=== PATIENT | female | born 1945 | race Native Hawaiian/Other Pacific Islander ===

== ENCOUNTER 2016-09-11 09:49 | Outpatient (CLI) | payer OTHER ==
[~2016-09-11 09:49] MED LIST: CARV6.25 PO; HYDR10TA47 PO; METF500T PO; OMEP20CA PO; PLAVIX75 MG PO; ROSU10TA PO; SINGULAIR10 MG PO; TOVIAZ4 MG PO; WARFARIN5 MG PO
[2016-09-11 10:14] LABS: POTASSIUM 3.7 mmol/L (3.6-5.2); SODIUM 139 mmol/L (136-145)
== END 2016-09-11 19:08 | disposition home or self-care (01) ==
LOC: LABW 09:49
PROVIDERS: Internal Medicine Cardiovascular Disease
DX: I25.10 Atherosclerotic heart disease of native coronary artery without angina pectoris (principal); R06.02 Shortness of breath; I10 Essential (primary) hypertension
CPT/HCPCS: 36415; 80048; 83880

== ENCOUNTER 2018-11-07 09:27 | Outpatient (CLI) | payer OTHER | END 2018-11-07 10:10 | disposition short-term general hospital (02) | LOC: AMB 09:27 | DX: M25.562 Pain in left knee (principal) | CPT/HCPCS: A0425; A0427 ==

== ENCOUNTER 2020-05-21 13:52 | Outpatient (CLI) | payer OTHER ==
[~2020-05-21] VITALS: Ht 167.6 cm; Wt 104.3 kg
[2020-05-21 14:05] VITALS: BP 146/74; TEMP 98.1
[2020-05-21 15:21] LABS: PLATELET COUNT 157 K/uL (152-353); POTASSIUM 3.7 mmol/L (3.6-5.2)
== END 2020-05-21 17:20 | disposition home or self-care (01) ==
LOC: INF 13:52
PROVIDERS: ATTEND Family Medicine
DX: U07.1 COVID-19 (principal); Z79.899 Other long term (current) drug therapy
CPT/HCPCS: 80053; 85027; 96365; Q0239

== ENCOUNTER 2020-12-11 08:36 | Outpatient (CLI) | payer OTHER | END 2020-12-11 22:10 | disposition home or self-care (01) | LOC: RESP 08:36 | PROVIDERS: ATTEND Internal Medicine | DX: R06.81 Apnea, not elsewhere classified (principal) ==

== ENCOUNTER 2021-04-01 09:26 | Outpatient (CLI) | payer OTHER | END 2021-04-01 20:04 | disposition home or self-care (01) | LOC: US 09:26 | PROVIDERS: ATTEND Internal Medicine Cardiovascular Disease | DX: R09.89 Other specified symptoms and signs involving the circulatory and respiratory systems (principal) ==

== ENCOUNTER 2021-08-11 10:10 | Outpatient (CLI) | payer OTHER ==
[2021-08-11 10:51] LABS: POTASSIUM 3.5 mmol/L (3.6-5.2)
== END 2021-08-11 19:30 | disposition home or self-care (01) ==
LOC: LABW 10:10
PROVIDERS: ATTEND Internal Medicine Cardiovascular Disease
DX: Z79.899 Other long term (current) drug therapy (principal); R06.09 Other forms of dyspnea
CPT/HCPCS: 36415; 80048; 83880

== ENCOUNTER 2022-09-06 04:56 | Emergency (ER) | payer OTHER ==
[~2022-09-06] VITALS: Ht 165.1 cm; Wt 104.3 kg
[2022-09-06 04:56] VITALS: TEMP 98.2
[2022-09-06 05:16] LABS: PLATELET COUNT 294 K/uL (152-353)
[2022-09-06 05:31] LABS: POTASSIUM 4.1 mmol/L (3.6-5.2)
[2022-09-06 10:20] VITALS: BP 109/76
== END 2022-09-06 10:20 | disposition short-term general hospital (02) ==
LOC: ED 04:56
PROVIDERS: Emergency Medicine
DX: R07.89 Other chest pain (principal); I50.9 Heart failure, unspecified; I48.91 Unspecified atrial fibrillation; Z96.652 Presence of left artificial knee joint
CPT/HCPCS: 36415; 80053; 82550; 83880; 84484; 85027; 85379; 85610; 85730; 93005; 96365; 96375; 96376; 99285; J1644; J1940; J2405; J3490; Q9963